=== PATIENT | male | born 2000 | race Caucasian/White ===

== ENCOUNTER 2024-11-09 20:00 | Emergency (ER) | payer MEDICAID, SELFPAY ==
--- OUTSIDE RECORDS SUMMARY | 2021-01-02 06:02 | XMS_ITS | Continuity of Care Document ---
Author Organization [facility] Address [id number] [address] Phone Care Team Providers Care Screen Stretcher Name Role Phone Kimberli Madison NP Unavailable Unavailable Allergies, Adverse Reactions, Alerts Substance Reaction Status Criticality No Known Allergies Active No Inform ation Medications Medication Instructions Dosage Effective Dates (start - stop) Status Comments doxycycline hyclate 100 mg capsule take 1 capsule by oral route 2 times every day for 10 days - Active Ventolin HFA 90 mcg/actuation aerosol inhaler inhale 2 puff by inhalation route every 4 - 6 hours as needed - Active 340 B albuterol sulfate HFA 90 mcg/actuation aerosol inhaler inhale 2 puff by inhalation route every 4 - 6 hours as needed - No Longer Active Tessalon Perles 100 mg capsule take 2 capsule by oral route 3 times every day 200 MG - No Longer Active Procedures Procedure Date OFFICE/OUTPATIENT VISIT, NEW COMPLETE CBC W/AUTO DIFF WBC METABOLIC PANEL TOTAL CA ROUTINE VENIPUNCTURE LIPID PANEL (PP $22.75) ROUTINE VENIPUNCTURE (PP $3.50) 015 BL SMEAR W/DIFF WBC COUNT GENERAL HEALTH PANEL OFFICE/OUTPATIENT VISIT, [facility] Advance Directives Directive Yes / No Effective Date File Name No Information Encounters Encounter Description Practice Location Reason(s) For Visit Diagnoses Date Provider Providers Copied on Encounter [facility], [id number] [place], [place], [id number], [place] tel:[phone] Family Medicine F1 No Information 1 [place] [facility] [address], [place], [id number] , [place]. tel: [phone] OFFICE/OUTPA TIENT VISIT, [facility], [id number]- [place], [place], [id number], [place] tel:[phone] Family Medicine F1 Est Care (chief complaint) Post Covid (chief complaint) Cough (chief complaint) Pneumonia due to COVID-19 virusCoughTachycard iaElevated BP without diagnosis of hypertensionBMI 70 and over, adult 1 [place] [address], [place], [id number] , [place]. tel:[phone] Referring Provider: Kimberli Shin, [address] [place], [address] . tel:[phone] [facility], [id number]- [place], [place], [id number], [place] tel:[phone] [facility] No Information [address]. [address], [place], [id number] , [place]. tel:[phone] Referring Provider: Marry Coley, [address] [place], [address] . tel:[phone] OFFICE/OUTPA TIENT VISIT, [facility], [id number]- [facility], [place], [id number], [place] tel:[phone] [facility] care (chief complaint) weight problem (chief complaint) cough (chief complaint) No Information Virgilio Tuttle. [address] [facility], [place], [place], [address] , [place]. tel:[phone] Referring Provider: Marry Poole S, [address] [facility], [place], [address] . tel:[phone] Family History Family Member Type Diagnosis Age At Onset Problem (finding) Family history of Diabe ashleigh mellitus Payers Payer name Insurance type Covered republican ID Authoriza tion(s) No Information Social History Type Description Quantity Date Captured Comments Alcohol Use Details Unknown Caffeine Use Details Unknown Tobacco Use Status No Information Smoking Status No Information Sex Male Sexual Orientation Heterosexual Gender Identity Male Chief Complaint And Reason For Visit No Information Reason For Referral Reason For Referral No Information Plan Of Treatment Date Type Action Status Goal Dietary management education , guidance, and counseling completed Goal Dietary management education , guidance, and counseling completed History Of Present Illness Encounter Date Complaint History Of Prese nt Illness Post Covid [facility] a bout a month ago. Pt states that he was dx with COVID pneumonia. Pt was given oxygen to go home on. Pt was on this for 2 weeks. Pt states that he is still coughing a lot. SOB is improving. Less SOB while walking. Pt was not COVID vaccine.Today HR is elevated and BP is elevated. Denies CP. Pt states he has been monitoring this at home. No significant elevations at home. Cough The patient desc ribes the cough as dry and productive. Associated symptoms include cough and fatigue. Pertinent negatives include dyspnea, dyspnea on exertion, fever, nasal congestion and night sweats. Additional information: Pt still has post COVID cough. Slightly productive cough. Still has some fatigue. Est Care weight problem The symptoms beg an 2 years ago. The symptoms are reported as being moderate. The symptoms occur randomly. Has lost ten pounds in the past four months since returning to [place]. States drinks soda minimally and eats mostly chicken. Has increased exercise. cough Onset: 2 days ag o. Severity: 5. The patient describes the cough as non-productive. It occurs occasionally. The problem has not changed. Context: allergies. Symptoms are aggravated by exercise. There are no relieving factors. Associated symptoms include cough, post-nasal drainage, rhinitis and wheezing. Pertinent negatives include dyspnea, fever, night sweats, pleuritic pain, sinus pressure, sore throat and weight loss. establish care Pt here [facility]. Unsure of immunization status as last recieved shots prior to eighth grade. Is now home schooled, studying for GED. Only complaint is weight problem. Functional Status Date Functional Assessmen t No Information Medications Administered Medication Instructions Dosage Effective Dates (start - stop) Status Comments albuterol sulfate HFA 90 mcg/actuation aerosol inhaler inhale 2 puff by inhalation route every 4 - 6 hours as needed - No Longer Active Tessalon Perles 100 mg capsule take 2 capsule by oral route 3 times every day 200 MG - No Longer Active Instructions Date Instruction Additional Infor gisel Discussed his BMI. Saumya Miller was acting as the scribe for this visit. The scribe's documentation has been prepared under my direction and personally reviewed by me. I confirm that the note above accurately reflects all work, treatment, procedures, counseling and medical decision making performed by me. 01/02/2021 @ 07:50. Related to BMI 70 and over, adult Discussed post COVID HTN and to monitor his BP and once he's better to let us know if his BP is still running high. Related to Elevated BP without diagnosis of hypertension Lab work ordered ban [facility], will call with lab results when they're available to us. Recommend he monitor his Sp02 and HR at home. Related to Tachycardia Has no insurance so can not afford a chest x-ray. Will prescribe an antibiotic and albuterol inhaler. Discussed medications and side effects. Related to Cough Slowly improving Related to Pneu monia due to COVID-19 virus Dietary management e ducation, guidance, and counseling Related to Pneumonia due to COVID-19 virus Weight control education Related to Pneumonia due to COVID-19 virus Please send immuniza tion record from [facility]. Related to General medical exam Symptoms are likely viral in nature with onset two days without significant fever. I advise to try drinking warm fluids with lemon/ honey and perform frequent saline sprays to thin secretions and loosen mucus production. Add guaifenesin, to help with the cough and encouraged to take tylenol/ ibuprofen for fever/ discomfort. He is advised to call if symptoms do not improve with fever, increase in cough/ production or any difficulty breathing. Related to Cough BP outside of target range. Work on diet and exercise as discussed. Monitor your blood pressure daily and report readings in 2-3 weeks. May need to add medicinal agent if does not remain below 140/90. Call if readings higher than 160/ 100. Related to Elevated blood pressure reading w/ no diagnosis of hypertension Continue to exercise and limit high fat foods. Try to monitor diet and increase fruit and vegetable consumption to increase weight management efforts. Related to Obesity Dietary management e ducation, guidance, and counseling Related to Obesity Patient advised about exercise R elated to Obesity Assessments Type Assessment Date No Information Patient Care Teams Name Effective Dates (start - stop) Status Members No Information
[2024-11-09 20:11] VITALS: BP 179/119; PULSE 95; RESP 16; TEMP 36.9; O2SAT 99; BMI 48.7
--- NOTE | 2024-11-09 21:27 | ED_ITS ---
HPI - Dental/Oral General: Chief complaint: Dental/Oral Stated complaint: dental absess worse hansen Time Seen by Provider: 11/09/24 20:23 Source: patient Mode of arrival: ambulatory Limitations: no limitations History of Present Illness: Patient is a 24-year-old male who presents emerged department complaining of facial swelling. He was seen in urgent care this morning diagnosed with dental abscess and prescribed amoxicillin, has taken 1 dose but states he is still had swelling in his face. No symptoms of respiratory compromise, no oropharyngeal swelling, he just notes some pain extending into the neck. No fever, vomiting, or symptoms of systemic illness at home. States that he has a dentist appointment next month, just wanted to make sure that the swelling was not anything concerning. Pain actually is improved from earlier. Onset (ago): day(s) Duration: constant Associated symptoms: Denies ear or mastoid pain or fever(s) Treatment prior to arrival: other (Antibiotics, 1 dose) Related Data Previous Rx's ?Medication ?Instructions ?Recorded prednisone 20 mg tablet 60 mg (3 x 20 mg) PO ONCE 5 days 11/09/24 #15 tabs Allergies Allergy/AdvReac Type Severity Reaction Status Date / Time No Known Allergies Allergy Verified 11/09/24 20:13 Review of Systems General: Reports: 10 or more systems reviewed and unremarkable except in HPI and below Const: Denies: fever(s), chills or fatigue Eyes: Denies: change in vision ENMT: Reports: dental pain, sinus pain and other (Facial swelling); Denies: throat pain, ear or mastoid pain or nasal discharge Card: Denies: chest pain, palpitations, swelling of feet/ankles or lightheadedness Resp: Denies: dyspnea, productive cough or wheezing GI: Denies: abdominal pain, nausea, vomiting, diarrhea or constipation : Denies: flank pain, difficulty urinating, dysuria or urinary frequency Musc: Denies: neck pain, back pain or joint pain Skin/Breast: Denies: rash Neuro: Denies: headache(s), numbness in extremities or weakness in extremities Physical Exam Const: COMMON NORMALS: no acute distress and no limitations GENERAL APPEARANCE: cooperative, comfortable and well developed ORIENTATION/CONSCIOUSNESS: Yes awake HENMT: COMMON NORMALS: normocephalic, atraumatic and hearing grossly normal bilaterally HEAD & SCALP: normocephalic and atraumatic OTHER: Swelling to the patient's right maxillofacial area, that is tender to palpation. Fair dentition, posterior oropharyngeal exam was unremarkable with no signs of impending respiratory compromise. Negative tenderness to palpation to the neck, no palpable lymphadenopathy at this time. Eye: COMMON NORMALS: Equal, round and reactive pupils present, EOMs intact bilaterally and conjunctivae normal CONJUNCTIVA: Yes conjunctivae normal PUPIL: Yes Equal, round and reactive pupils present Neck/C-Spine: COMMON NORMALS: full ROM, supple and no JVD Resp: COMMON NORMALS: normal respiratory effort, No retractions, No use of accessory muscles and clear to auscultation bilaterally AUSCULTATION: clear to auscultation bilaterally Cardio: COMMON NORMALS: no JVD, regular rate, regular rhythm, No clicks present (Cardio), No murmurs present (Cardio) and No rub (Cardio) RATE: regular rate RHYTHM: regular rhythm Extremity: COMMON NORMALS: normal to inspection, full ROM and capillary refill normal Skin: COMMON NORMALS: no rashes or lesions noted GENERAL SKIN EXAM: no rashes or lesions noted Course Vital Signs: Vital signs: Vital Signs Temperature 98.5 F 11/09/24 20:11 Pulse Rate 95 11/09/24 20:11 Respiratory Rate 16 11/09/24 20:11 Blood Pressure 179/119 11/09/24 20:11 Pulse Oximetry 99 11/09/24 20:11 Oxygen Delivery Me thod Room Air 11/09/24 20:11 MDM - Dental/Oral Medical Decision Making Patient presenting with facial swelling, after being diagnosed with dental abscess at urgent care earlier today. He has only taken 1 dose of his amoxicillin. He had no symptoms of systemic illness with his history or on examination, and respiratory status unremarkable. Does not appear toxic, vital stable. Suspect that this is from the dental abscess so we will add steroids, he is given shot of Decadron here in the emergency department and given strict r eturn precautions if his condition worsens. He is set to follow-up with a dentist next month, will continue this as planned. No radiology studies performed this visit Discharge Plan Discharge Patient Disposition: Home Clinical Impression: Dental abscess Condition: Stable Prescriptions: New prednisone 20 mg tablet 60 mg PO ONCE 5 Days Qty: 15 0RF Discharge Orders: Discharge ED (Routine); Ordered 11/09/24 Ordered By: Matt Garcia Patient Instructions: Patient Portal & Corey Instructions Activity Restrictions/Additional Instructions: Dental Abscess Discharge Instructions Diagnosis: Acute dental abscess with facial swelling, without systemic involvement or airway compromise. Treatment Provided: Antibiotics initiated; adjunctive corticosteroids prescribed for facial swelling; definitive dental management pending. --- Medications: - Antibiotics: Continue the prescribed antibiotic regimen as directed. For penicillin-allergic patients, cephalexin, azithromycin, or clindamycin may be considered, with attention to adverse event profiles and resistance. - Discontinue antibiotics 24 hours after complete resolution of symptoms, unless otherwise instructed. - Monitor for adverse effects: fever, abdominal pain, or >= loose stools/day may indicate Clostridioides difficile infection, especially with clindamycin. - Steroids: Short-term corticosteroids may be used to reduce facial swelling and improve symptoms. Evidence supports their safety and efficacy as adjuncts in cervicofacial infections, though they do not reduce length of stay or reoperation rates in severe cases. - Take as prescribed; do not exceed the recommended duration. - Monitor for side effects: mood changes, insomnia, hyperglycemia, or gastrointestinal upset. --- Follow-Up: - Dental Care: Schedule and attend follow-up with a dentist within 1?2 days for definitive management (e.g., root canal, incision and drainage, or other conservative dental procedures). - Reevaluation: If symptoms persist or worsen, reevaluation within 3 days is recommended. --- Return Precautions: Seek immediate medical attention for any of the following: - Respiratory compromise: Difficulty breathing, stridor, or inability to swallow. - Rapid progression of swelling: Extension to the neck, periorbital region, or bilateral facial spaces. - Systemic symptoms: Fever (>38?C), chills, malaise, confusion, or new onset of fatigue. - Signs of deep space infection: Trismus, dysphagia, voice changes, or neck stiffness. - Failure to improve: No improvement or worsening of pain, swelling, or purulent drainage after 48?72 hours of therapy. - Adverse drug reactions: Rash, urticaria, severe diarrhea, or abdominal pain. --- Additional Instructions: - Maintain hydration and nutrition as tolerated. - Use analgesics (e.g., ibuprofen 400?600 mg plus acetaminophen 1000 mg) for pain control, unless contraindicated. - Avoid manipulation of the affected area. - Notify the dental provider if unable to obtain definitive dental care within 1?2 days. --- Summary of Evidence: - Antibiotics are indicated for dental abscesses with localized swelling; amoxicillin is preferred for its efficacy and tolerability. - Adjunctive corticosteroids may reduce swelling and improve symptoms, but do not alter the need for definitive dental intervention. - Close follow-up and clear return precautions are essential to identify progression to deep space infection or systemic involvement. Print Language: Bahraini Coding Level of Care Code ED Member Of Parliament for Annamarie Moreno
== END 2024-11-09 21:44 | disposition home or self-care (01) ==
PROVIDERS: Emergency Provider Physician Assistant
DX: K04.7 Periapical abscess without sinus (principal)
CPT/HCPCS: 96372; 99284; J1100